=== PATIENT | female | born 1985 | race Caucasian/White ===

== ENCOUNTER → 2019-01-16 | Outpatient (CLI) | payer BC, MEDICAID ==
[~2019-01-16] MED LIST: CATHETER FLUSH 10 ML SYR IV PRN; HOLD METFORMIN - RECEIVED CONTRAST 20 ML VIAL IV SCH; IOHEXOL 350 MG/ML 100 ML (OMNIPAQUE 350) VIAL IV ONE; NS 100 ML (IVPB) BAG IV ONE
--- NOTE | 2019-01-16 10:13 | Diagnostic Imaging Report ---
PROCEDURE: CT head with contrast. TECHNIQUE: Multiple contiguous axial images were obtained through the brain after the administration of intravenous contrast. Auto Exposure Controls were utilized during the CT exam to meet ALARA standards for radiation dose reduction. INDICATION: Left parotid mass COMPARISON: None. FINDINGS: The ventricles and cortical sulci are normal in size and contour. Postcontrast images show no abnormal intracranial enhancement. There is no midline shift or mass-effect. No acute intra-axial hemorrhage is seen. There are no abnormal areas of increased or decreased density to suggest acute hemorrhage or edema. No extra-axial masses or collections are present. The bony calvarium is intact. The visualized paranasal sinuses are unremarkable. The mastoid air cells are clear. Evaluation of the superficial soft tissue structures demonstrates two cystic-appearing lesions on the left. The larger of these lesions is identified peripheral to the left temporal bone and overlying the superficial posterior margins of the left cylinder press operator helper muscle. It measures 2.1 x 4.9 cm in axial dimension by approximately 2.4 cm in CC dimension. Slightly inferior to this is a second partially visualized 2.7 x 2.8 x 2.8 cm cystic-appearing lesion. Centrally, the lesions are uniformly hypodense and hypoenhancing. Hounsfield units are consistent with low-density fluid. There does appear to be some minimal thin capsular enhancement. Note is also made that the more inferior structure does extend into the superior intra-parenchymal portions of the left parotid gland. Please note, its relationship to the parotid gland is better demonstrated on dedicated CT of the neck from same day. IMPRESSION: 1. No acute intracranial abnormality. No CT evidence of mass, acute infarct or intracranial hemorrhage. 2. Two partially visualized cystic-appearing lesions of the left face as described above. First branchial cleft cyst is favored. Extension of the more inferior lesion into the parotid gland also raises possibility of parotid origin such as cystic Warthin's tumors. Other considerations include lymphangioma, dermoid or possibly atypical venous malformation. Please note, these findings are more completely visualized and further discussed on dedicated CT of the neck from same day. Please refer that report. Dictated by: Dictated on workstation # [id number]
--- NOTE | 2019-01-16 12:41 | Diagnostic Imaging Report ---
PROCEDURE: CT neck soft tissue with contrast. TECHNIQUE: Multiple contiguous axial images were obtained through the neck after the administration of contrast. Auto Exposure Controls were utilized during the CT exam to meet ALARA standards for radiation dose reduction. INDICATION: Swelling of left face and neck. FINDINGS: There is a bilobed cystic lesion centered on the left parotid gland. The more superior lobe extends along the temporal calvarium superiorly. This measures approximately 6 cm craniocaudal x 5 cm AP x 2 cm transverse. No definitive mural nodule or other soft tissue component or calcification is appreciated. There is a mucus retention cyst or polyp in the right maxillary sinus. The visualized intracranial structures are unremarkable. The mastoid air cells are clear. The nasopharyngeal, hypopharyngeal, and oropharyngeal tissues are symmetrical without mass effect. The submandibular glands are unremarkable. The thyroid is normal in appearance. The lung apices are clear. Major vascular structures of the neck enhance in a normal fashion. The globes and intraorbital structures are unremarkable. The cervical spine is unremarkable. The prevertebral soft tissues are within normal limits. The epiglottis is unremarkable. IMPRESSION: Bilobed cystic mass in the region of the left parotid gland extending superiorly along the temporal bone. Differential considerations include branchial cleft cyst, lymphangioma, dermoid or possibly atypical venous malformation. This has a generally benign appearance, although neoplasm cannot be entirely excluded. Further characterization with gadolinium-enhanced MRI is recommended. Small mucus retention cyst or polyp in the right maxillary sinus. Otherwise, unremarkable CT neck. Dictated by: Dictated on workstation # [id number]
== END ==
LOC: RAD FS 08:47
PROVIDERS: ATTEND Otolaryngology Otolaryngology/Facial Plastic Surgery
DX: K11.8 Other diseases of salivary glands (principal); R22.1 Localized swelling, mass and lump, neck
CPT/HCPCS: 70460; 70491

== ENCOUNTER 2019-04-30 09:35 | Emergency (ER) | payer BC, MEDICAID ==
[~2019-04-30] VITALS: Ht 170.8 cm; Wt 104.6 kg
--- NOTE | 2019-04-30 10:08 | ED Integumentary General ---
General Chief Complaint: Skin/Wound Problems Stated Complaint: CYST POST SURGERY Source: patient Exam Limitations: no limitations History of Present Illness Date Seen by Provider: Apr 30, 2019 Time Seen by Provider: 10:00 Initial Comments Patient presents to the ER with concern over redness and swelling of the left side of her neck. Recent past medical history significant for left lateral neck surgical dissection of the cyst on 10 of April at [facility]. Patient admits she took cephalexin for 3 days after surgery, but "never finished taking the whole bottle." Saw the ENT doctor on 17 April for removal of the drain at the lower incision and everything was going well. Yesterday had noticed the redness and some slight swelling of the incision, denies any drainage from the incision or significant pain. Denies fever or chills. Allergies and Home Medications Allergies Coded Allergies: meperidine (Verified Allergy, Unknown, Hives, 04/30/19) Home Medications Cephalexin 500 Mg Tablet, 500 MG PO QID Prescribed by: PRISCA OWENS on 04/30/19 1018 Patient Home Medication List Home Medication List Reviewed: Yes Review of Systems Review of Systems Constitutional: see HPI; No chills, No diaphoresis, No dizziness, No fever, No malaise, No weakness EENTM: ear pain (left), other (left neck surgical incision redness); No ear discharge, No blurred vision, No double vision, No eye pain, No vision loss, No hoarseness, No mouth pain, No mouth swelling, No epistaxis, No nose congestion, No nose pain, No throat pain, No throat swelling Respiratory: no symptoms reported Cardiovascular: no symptoms reported Skin: see HPI, change in color Past Ousbsyh-Lhczts-Fxnzxi Hx Past Med/Social Hx: Reviewed Nursing Past Med/Soc Hx Patient Social History Recent Foreign Travel: No Physical Exam Vital Signs Vital Signs - First Documented 04/30/19 09:42 Temp 36.6 Pulse 84 Resp 16 B/P (MAP) 130/70 (90) Pulse Ox 97 O2 Delivery Room Air Capillary Refill : General Appearance: WD/WN, no apparent distress HEENT: normal ENT inspection, TMs normal, pharynx normal; No tonsillar exudate Neck: supple, lymphadenopathy (L) (upper lateral), other (Surgical incision from anterior ear, to post mandibluar angle to lower lateral left neck. Surrounding erythema scattered around incision without dehiscence or wound drainage. ) Progress/Results/Core Measures Results/Orders Vital Signs/I&O 04/30/19 09:42 Temp 36.6 Pulse 84 Resp 16 B/P (MAP) 130/70 (90) Pulse Ox 97 O2 Delivery Room Air Progress Progress Note : Time: 10:37 Progress Note attempted calls to - ENT offices to speak to Dr Koehler or a treasury representative, but unable to get through. Reinforced w pt to call ENT office today to notify Dr Koehler of wound infection Departure Impression Primary Impression: Wound cellulitis after surgery Disposition: HOME, SELF-CARE Condition: Stable Departure-Patient Inst. Referrals: SELF,BRITTANEY NUÑEZ (PCP) Primary Care Physician MARCOS TALAVERA APRN (Family) Primary Care Physician Patient Instructions: Cellulitis (Skin Infection), Adult (DC), How to Prevent Surgical Site Infections Scripts Cephalexin (Cephalexin) 500 Mg Tablet 500 MG PO QID for 7 Days, #28 TAB Prov: PRISCA OWENS DO 04/30/19 PRISCA OWENS DO Apr 30, 2019 10:08 POS
[2019-04-30] MEDS ORDERED: CEPH500T PO (10:18)
[2019-04-30 10:36] VITALS: BP 115/88
== END 2019-04-30 10:36 | disposition home or self-care (01) ==
LOC: EDUNIT# 09:35 → ER FS 09:36
DX: T81.49XA Infection following a procedure, other surgical site, initial encounter (principal); Z88.5 Allergy status to narcotic agent
CPT/HCPCS: 99282

== ENCOUNTER 2019-07-13 14:03 | Emergency (ER) | payer BC, MEDICAID ==
[~2019-07-13] VITALS: Ht 170.1 cm; Wt 109.1 kg
[~2019-07-13 14:03] MED LIST changes: -CATHETER FLUSH 10 ML SYR IV PRN; +CEPH500T PO; -HOLD METFORMIN - RECEIVED CONTRAST 20 ML VIAL IV SCH; -IOHEXOL 350 MG/ML 100 ML (OMNIPAQUE 350) VIAL IV ONE; -NS 100 ML (IVPB) BAG IV ONE
--- NOTE | 2019-07-13 14:28 | ED Back Pain ---
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 She is complaining of pain over the lumbar region. Pain is sharp in nature and radiates into her thighs. Allergies and Home Medications Allergies Coded Allergies: meperidine (Verified Allergy, Unknown, Hives, 04/30/19) Patient Home Medication List Home Medication List Reviewed: Yes Review of Systems Constitutional: no symptoms reported EENTM: no symptoms reported Respiratory: no symptoms reported Cardiovascular: no symptoms reported Gastrointestinal: no symptoms reported Genitourinary: no symptoms reported Musculoskeletal: see HPI, back pain Skin: no symptoms reported Psychiatric/Neurological: No Symptoms Reported Past Bmawdiw-Tevepl-Ijifqy Hx Past Med/Social Hx: Reviewed Nursing Past Med/Soc Hx Patient Social History Drug of Choice: Marijuana Type Used: Cigarettes 2nd Hand Smoke Exposure: No Recent Hopitalizations: No Seasonal Allergies Seasonal Allergies: No Past Medical History Surgeries: Yes (Parotid Cyst removal from salivary gland) Cystectomy Respiratory: No Cardiac: No Neurological: No Genitourinary: No Gastrointestinal: No Musculoskeletal: No Endocrine: No HEENT: No Cancer: No Psychosocial: No Integumentary: No Blood Disorders: No Physical Exam Vital Signs Vital Signs - First Documented 07/13/19 14:11 Temp 36.2 Pulse 68 Resp 20 B/P (MAP) 139/88 (105) Pulse Ox 97 O2 Delivery Room Air Capillary Refill : Height, Weight, BMI Height: '" Weight: lbs. oz. kg; 35.00 BMI Method: General Appearance: No Apparent Distress, Mild Distress HEENT: Normal ENT Inspection Neck: Normal Inspection Cardiovascular: Regular Rate, Rhythm Respiratory: Lungs Clear, No Respiratory Distress Gastrointestinal: Normal Bowel Sounds, Soft Back: Normal Inspection, Muscle Spasm Extremity: Normal Inspection Neurologic/Psychiatric: No Motor/Sensory Deficits, Normal Mood/Affect Skin: Normal Color, Warm/Dry Progress/Results/Core Measures Results/Orders My Orders Orders - SUMI MURILLO MD Lumbar Spine 2 Or 3 View (07/13/19 14:19) Fentanyl Injection (Sublimaze Injection (07/13/19 14:30) Medications Given in ED Current Medications Medications Dose Ordered Sig/Hannah Route Start Time Stop Time Status Last Admin Dose Admin Fentanyl Citrate 50 mcg ONCE ONCE IM 07/13/19 14:30 07/13/19 14:31 DC 07/13/19 14:26 50 MCG Vital Signs/I&O 07/13/19 14:11 Temp 36.2 Pulse 68 Resp 20 B/P (MAP) 139/88 (105) Pulse Ox 97 O2 Delivery Room Air Progress Progress Note : Time: 14:51 Progress Note Patient was much improved with 50 g of fentanyl. X-rays lumbosacral spine were unremarkable. I discussed findings with the patient. I discharged patient with Vicodin and Flexeril. I asked that she follow-up with her caregiver tomorrow. I asked that she return if she had any further problems or questions. Departure Impression Primary Impression: Lumbar sprain Qualified Codes: S33.5XXA - Sprain of ligaments of lumbar spine, initial encounter Disposition: 01 HOME, SELF-CARE Condition: Improved Departure-Patient Inst. Decision time for Depature: 14:52 Referrals: [facility]ON[facility] (PCP) Primary Care Physician MARCOS TALAVERA APRN (Family) Primary Care Physician Patient Instructions: Lumbar Muscle Strain (DC) Add. Discharge Instructions: Vicodin Flexeril as prescribed. Close follow-up with [facility] tomorrow. Return if any problems or questions. All discharge instructions reviewed with patient and/or family. Voiced understanding. Scripts Cyclobenzaprine HCl (Cyclobenzaprine HCl) 10 Mg Tablet 10 MG PO TID PRN for SPASMS, #20 TAB Prov: SUMI MURILLO MD 07/13/19 Hydrocodone/Acetaminophen (Hydrocodon-Acetaminophen 5-300) 1 Each Tablet 1-2 EACH PO Q6H PRN for PAIN-MODERATE for 7 Days, #20 TAB Prov: SUMI MURILLO MD 07/13/19 SUMI MURILLO MD Jul 13, 2019 14:28
[2019-07-13] MEDS ORDERED: fentaNYL INJECTION 100 MCG/2 ML AMP IM ONE (14:30)
--- NOTE | 2019-07-13 14:44 | Diagnostic Imaging Report ---
Indication: Worsening low back pain after injuring yesterday. Comparison: None. Discussion: Three views of the lumbosacral spine were obtained. No fracture or subluxation. Alignment is anatomic. The intervertebral disc spaces are well-maintained. Soft tissues are unremarkable. Impression: 1. Negative lumbar spine. Dictated by: Dictated on workstation # [id number]
[2019-07-13] MEDS ORDERED: CYCL10TA9 PO (14:55)
[2019-07-13] MEDS ORDERED: HYDR-3062 PO (14:55)
[2019-07-13 14:58] VITALS: BP 139/88
== END 2019-07-13 14:58 | disposition home or self-care (01) ==
LOC: EDUNIT# 14:03 → ER FS 14:04
DX: S33.5XXA Sprain of ligaments of lumbar spine, initial encounter (principal); Z88.5 Allergy status to narcotic agent; Z90.6 Acquired absence of other parts of urinary tract; X50.0XXA Overexertion from strenuous movement or load, initial encounter
CPT/HCPCS: 72100; 96372

== ENCOUNTER 2020-07-05 15:20 | Emergency (ER) | payer MEDICAID ==
[~2020-07-05 15:20] MED LIST changes: +ACHD5005 PO; +CYCL10TA9 PO
[2020-07-05 15:48] LABS: HEMATOCRIT 34 % (35-52); HEMOGLOBIN 11.7 G/DL (11.5-16.0); MEAN CORPUSCULAR HEMOGLOBIN 30 PG (25-34); MEAN CORPUSCULAR HGB CONC 35 G/DL (32-36); MEAN CORPUSCULAR VOLUME 88 FL (80-99); WHITE BLOOD COUNT 11.1 10^3/uL (4.3-11.0)
[2020-07-05 15:49] LABS: BASOPHILS % (AUTO) 0 % (0-10); EOSINOPHILS # (AUTO) 0.1 10^3/uL (0.0-0.3); EOSINOPHILS % (AUTO) 1 % (0-10); LYMPHOCYTES # (AUTO) 6.6 X 10^3 (1.0-4.0); LYMPHOCYTES % (AUTO) 60 % (12-44); MEAN PLATELET VOLUME 9.9 FL (7.4-10.4); MONOCYTES % (AUTO) 9 % (0-12); NEUTROPHILS # (AUTO) 3.4 X 10^3 (1.8-7.8); NEUTROPHILS % (AUTO) 31 % (42-75); PLATELET COUNT 200 10^3/uL (130-400)
[2020-07-05] MEDS: NS IV 1000 ML 1,000 ML IV SCH ×2 (15:56→16:28)
--- NOTE | 2020-07-05 16:01 | Diagnostic Imaging Report ---
EXAMINATION: Portable erect AP chest at 3:36 PM INDICATION: Cough and congestion There are no prior chest examinations available for comparison. By history, the patient is approximately 33 weeks . She was shielded prior to this exam. The heart size is within normal limits. The lungs are clear. There is no evidence for failure, pneumonia or for pleural effusion. The mediastinum is not widened. There is a long-standing incompletely healed fracture of the distal right clavicle. The osseous structures are otherwise intact. IMPRESSION: There is no evidence for active disease. Dictated by: Dictated on workstation # [id number]
[2020-07-05 16:05] LABS: ALANINE AMINOTRANSFERASE 14 U/L (0-55); ALKALINE PHOSPHATASE 117 U/L (40-136); BILIRUBIN,TOTAL 0.2 MG/DL (0.1-1.0); BUN/CREATININE RATIO 12; CALCIUM 8.7 MG/DL (8.5-10.1); CARBON DIOXIDE 23 MMOL/L (21-32); CHLORIDE 100 MMOL/L (98-107); CREATININE SERUM 0.52 MG/DL (0.60-1.30); GFR ESTIMATED > 60; GLUCOSE 143 MG/DL (70-105); POTASSIUM 3.8 MMOL/L (3.6-5.0); SODIUM 135 MMOL/L (135-145); TOTAL PROTEIN 6.4 GM/DL (6.4-8.2)
[2020-07-05 16:23] LABS: BACTERIA,URINE MODERATE /HPF; BILIRUBIN,URINE NEGATIVE (NEGATIVE); CLARITY,URINE CLEAR; COLOR,URINE YELLOW; GLUCOSE, URINE (UA) NEGATIVE (NEGATIVE); KETONES,URINE 1+ (NEGATIVE); LEUKOCYTE ESTERASE ,URINE 1+ (NEGATIVE); NITRITE,URINE NEGATIVE (NEGATIVE); PH,URINE 7.5 (5-9); PROTEIN,URINE NEGATIVE (NEGATIVE); SQUAMOUS EPITHELIAL CELL,UR >50 /HPF
[2020-07-05 16:30] LABS: AMPHETAMINE SCREEN, URINE NEGATIVE (NEGATIVE); BARBITURATE SCREEN URINE NEGATIVE (NEGATIVE); BENZODIAZEPINES SCREEN URINE NEGATIVE (NEGATIVE); CANNABINOID SCREEN, URINE NEGATIVE (NEGATIVE); COCAINE SCREEN URINE NEGATIVE (NEGATIVE); METHADONE STAT NEGATIVE (NEGATIVE); METHAMPHETAMINE SCREEN URINE S NEGATIVE (NEGATIVE); OPIATE SCREEN URINE NEGATIVE (NEGATIVE); TRICYCLIC ANTIDEPRESSANTS SCRE NEGATIVE (NEGATIVE)
[2020-07-05 16:31] LABS: OXYCODONE STAT NEGATIVE (NEGATIVE); PROPOXYPHENE STAT NEGATIVE (NEGATIVE)
[2020-07-05] MEDS ORDERED: BARIUM for suspension 96% w/w (Vanilla Silq Medium Density) PO ONE ×2 (17:15→17:30)
[2020-07-05] MEDS ORDERED: HOLD METFORMIN - RECEIVED CONTRAST 20 ML VIAL IV SCH (17:15)
[2020-07-05] MEDS ORDERED: CATHETER FLUSH 10 ML SYR IV PRN (17:15)
[2020-07-05] MEDS ORDERED: NS 100 ML (IVPB) BAG IV ONE (17:15)
[2020-07-05] MEDS ORDERED: IOHEXOL 350 MG/ML 100 ML (OMNIPAQUE 350) VIAL IV ONE (17:15)
--- NOTE | 2020-07-05 18:14 | Diagnostic Imaging Report ---
EXAMINATION: CTA of the chest from 07/05/2020. TECHNIQUE: Multiple contiguous axial images were obtained through the chest after uneventful bolus administration of intravenous contrast. 3D reconstructed CTA MIP acquisitions were also performed. Auto Exposure Controls were utilized during the CT exam to meet ALARA standards for radiation dose reduction. INDICATION: Cough and congestion, chest pain, and elevated D-dimer. Patient is 33 weeks . FINDINGS: The bolus was missed per the technologist, auto-trigger triggered examination prematurely. This markedly limits evaluation for pulmonary embolus. Within the region of the right main pulmonary artery on images 58 through 61, there is a low-density area noted. It is unclear if this lies within the artery or is caused by incomplete opacification and adjacent volume averaging with the right hilum. Given pulmonary embolus cannot be excluded, short-term follow-up repeat imaging if symptoms persist may be warranted. The thoracic aorta is unremarkable. No pericardial or pleural effusions seen. The visualized lungs demonstrate linear scarring or atelectasis in the lingula and anterior aspect of the left lower lobe. There is no acute osseous abnormality. IMPRESSION: 1. Markedly limited evaluation for pulmonary embolus. Please see above discussion. If continued clinical concern, repeat imaging may be necessary. Other findings as above. Dictated by: Dictated on workstation # [id number]
--- NOTE | 2020-07-05 19:19 | ED General ---
General Chief Complaint: Chest Pain Stated Complaint: CHEST PAIN Nursing Triage Note: Patient presents to the ED with c/o of Chest pain at 33 weeks gestation. She states that she has had intermittent chest pain since Sunday. She denies any complications with her pregancy. She reports she had a appointment Sunday and was sent to get swabbed for COVID due to cough and chest pain; reported result was negative. She was then seen at [facility] walk-in Sunday due to increased heart rate and chest pains. She states she was told her heart rate was due to anxiety and her lungs were clear to ascultation. Today she reports her symptoms began again so she presented to ED for further evaluation. Nursing Sepsis Screen: No Definite Risk History of Present Illness Date Seen by Provider: Jul 05, 2020 Time Seen by Provider: 17:00 Initial Comments Patient is a G4, P3, approximately 33 week gestation female who presents with persistent chest pain. Patient reports pleuritic chest burning, shortness of breath with tachycardia. Patient states symptoms ongoing for the past he can have further gradually worsened. She reports being tachycardic with palpitations with light exertion with heart rates in the 130s. Patient was evaluated and tested negative for coded by her R[employer]DER last week. She is instructed that should her symptoms worsen she should come to the emergency department today. Patient denies fever chills, nausea vomiting or sweats 3. Reports occasional cough. No leg pain or swelling. No history of DVT or PE. Reports sporadic light contractions consistent with episodes of [place] but denies any in the emergency department today. Denies complications with current . Patient's OB Timing/Duration: 6-7 Days Severity: Moderate Modifying Factors: improves with Other Associated Systoms: Chest Pain Allergies and Home Medications Allergies Coded Allergies: meperidine (Verified Allergy, Unknown, Hives, 04/30/19) Home Medications Cyclobenzaprine HCl 10 Mg Tablet, 10 MG PO TID PRN for SPASMS Prescribed by: SUMI MURILLO MD on 07/13/19 6902 Hydrocodone Bit/Acetaminophen 1 Each Tablet, 1-2 EACH PO Q6H PRN for PAIN- MODERATE Prescribed by: SUMI MURILLO MD on 07/13/19 2341 Patient Home Medication List Home Medication List Reviewed: Yes Review of Systems Review of Systems Constitutional: see HPI EENTM: see HPI Respiratory: see HPI Cardiovascular: see HPI Gastrointestinal: see HPI Genitourinary: see HPI : Yes Skin: see HPI Psychiatric/Neurological: See HPI Hematologic/Lymphatic: See HPI All Other Systems Reviewed Negative Unless Noted: Yes Past Vtmpvyu-Xbhsrm-Wijzci Hx Past Med/Social Hx: Reviewed Nursing Past Med/Soc Hx Patient Social History Alcohol Use: Denies Use Drug of Choice: Marijuana Smoking Status: Current Everyday Smoker Type Used: Cigarettes 2nd Hand Smoke Exposure: No Recent Infectious Disease Expo: No Recent Hopitalizations: No Seasonal Allergies Seasonal Allergies: No Past Medical History Surgeries: Yes (Parotid Cyst removal from salivary gland) Cystectomy Respiratory: No Cardiac: No Neurological: No Genitourinary: No Gastrointestinal: No Musculoskeletal: No Endocrine: No HEENT: No Cancer: No Psychosocial: No Integumentary: No Blood Disorders: No Physical Exam Vital Signs Vital Signs - First Documented 07/05/20 15:25 Temp 37.1 Pulse 122 Resp 20 B/P (MAP) 95/63 (74) Pulse Ox 97 O2 Delivery Room Air Capillary Refill : Less Than 3 Seconds Height, Weight, BMI Height: '" Weight: lbs. oz. kg; 37.00 BMI Method: General Appearance: No Apparent Distress Eyes: Bilateral Eye Normal Inspection, Bilateral Eye PERRL, Bilateral Eye EOMI HEENT: PERRL/EOMI, TMs Normal, Pharynx Normal Neck: Full Range of Motion, Non Tender, Supple Respiratory: Chest Non Tender, Lungs Clear Cardiovascular: Tachycardia Gastrointestinal: Non Tender (gravid abdomen low diaphragm), Soft, Other Back: Normal Inspection Extremity: Normal Capillary Refill, Normal Inspection, Non Tender Neurologic/Psychiatric: Alert Reflexes: 4+ Bicep (R), 4+ Bicep (L) Skin: Normal Color Lymphatic: No Adenopathy Focused Exam Sepsis Stage: Ruled Out Progress/Results/Core Measures Suspected Sepsis Recent Fever Within 48 Hours: No Infection Criteria Present: Suspected New Infection New/Unexplained Altered Menta: No Sepsis Screen: No Definite Risk SIRS Temperature: Pulse: 122 Respiratory Rate: 20 Laboratory Tests 07/05/20 15:28: White Blood Count 11.1H Blood Pressure 95 /63 Mean: 74 Laboratory Tests 07/05/20 15:28: Creatinine 0.52L, Platelet Count 200, Total Bilirubin 0.2 Results/Orders Lab Results Laboratory Tests Test 07/05/20 15:28 07/05/20 16:11 Range/Units White Blood Count 11.1 H 4.3-11.0 10^3/uL Red Blood Count 3.85 L 4.35-5.85 10^6/uL Hemoglobin 11.7 11.5-16.0 G/DL Hematocrit 34 L 35-52 % Mean Corpuscular Volume 88 80-99 FL Mean Corpuscular Hemoglobin 30 25-34 PG Mean Corpuscular Hemoglobin Concent 35 32-36 G/DL Red Cell Distribution Width 12.7 10.0-14.5 % Platelet Count 200 130-400 10^3/uL Mean Platelet Volume 9.9 7.4-10.4 FL Neutrophils (%) (Auto) 31 L 42-75 % Lymphocytes (%) (Auto) 60 H 12-44 % Monocytes (%) (Auto) 9 0-12 % Eosinophils (%) (Auto) 1 0-10 % Basophils (%) (Auto) 0 0-10 % Neutrophils # (Auto) 3.4 1.8-7.8 X 10^3 Lymphocytes # (Auto) 6.6 H 1.0-4.0 X 10^3 Monocytes # (Auto) 1.0 0.0-1.0 X 10^3 Eosinophils # (Auto) 0.1 0.0-0.3 10^3/uL Basophils # (Auto) 0.0 0.0-0.1 10^3/uL D-Dimer 2.53 H 0.00-0.49 UG/ML Sodium Level 135 135-145 MMOL/L Potassium Level 3.8 3.6-5.0 MMOL/L Chloride Level 100 98-107 MMOL/L Carbon Dioxide Level 23 21-32 MMOL/L Anion Gap 12 5-14 MMOL/L Blood Urea Nitrogen 6 L 7-18 MG/DL Creatinine 0.52 L 0.60-1.30 MG/DL Estimat Glomerular Filtration Rate > 60 BUN/Creatinine Ratio 12 Glucose Level 143 H 70-105 MG/DL Calcium Level 8.7 8.5-10.1 MG/DL Corrected Calcium 9.5 8.5-10.1 MG/DL Total Bilirubin 0.2 0.1-1.0 MG/DL Aspartate Amino Transf (AST/SGOT) 28 5-34 U/L Alanine Aminotransferase (ALT/SGPT) 14 0-55 U/L Alkaline Phosphatase 117 40-136 U/L Troponin I < 0.30 <0.30 NG/ML Total Protein 6.4 6.4-8.2 GM/DL Albumin 3.0 L 3.2-4.5 GM/DL Urine Color YELLOW Urine Clarity CLEAR Urine pH 7.5 5-9 Urine Specific [place] 1.020 1.016-1.022 Urine Protein NEGATIVE NEGATIVE Urine Glucose (UA) NEGATIVE NEGATIVE Urine Ketones 1+ H NEGATIVE Urine Nitrite NEGATIVE NEGATIVE Urine Bilirubin NEGATIVE NEGATIVE Urine Urobilinogen 0.2 < = 1.0 MG/DL Urine Leukocyte Esterase 1+ H NEGATIVE Urine RBC (Auto) NEGATIVE NEGATIVE Urine RBC NONE /HPF Urine WBC 2-5 /HPF Urine Squamous Epithelial Cells >50 H /HPF Urine Crystals NONE /LPF Urine Bacteria MODERATE H /HPF Urine Casts NONE /LPF Urine Mucus NEGATIVE /LPF Urine Culture Indicated NO Urine Opiates Screen NEGATIVE NEGATIVE Urine Oxycodone Screen NEGATIVE NEGATIVE Urine Methadone Screen NEGATIVE NEGATIVE Urine Propoxyphene Screen NEGATIVE NEGATIVE Urine Barbiturates Screen NEGATIVE NEGATIVE Ur Tricyclic Antidepressants Screen NEGATIVE NEGATIVE Urine Phencyclidine Screen NEGATIVE NEGATIVE Urine Amphetamines Screen NEGATIVE NEGATIVE Urine Methamphetamines Screen NEGATIVE NEGATIVE Urine Benzodiazepines Screen NEGATIVE NEGATIVE Urine Cocaine Screen NEGATIVE NEGATIVE Urine Cannabinoids Screen NEGATIVE NEGATIVE My Orders Orders - MARY MICHELE DO Cbc With Automated Diff (07/05/20 15:29) Comprehensive Metabolic Panel (07/05/20 15:29) Chest 1 View Ap/Pa Only (07/05/20 15:29) Troponin I Fs (07/05/20 15:29) Fibrin Degradation Products (07/05/20 15:29) Ns Iv 1000 Ml (Sodium Chloride 0.9%) (07/05/20 16:00) Ua Culture If Indicated (07/05/20 15:46) Drug Screen Stat (Urine) (07/05/20 16:15) Ct Angio Chest W (07/05/20 16:35) Barium For Suspension 96% W/W (Vanilla S (07/05/20 17:15) Iohexol Injection (Omnipaque 350 Mg/Ml 1 (07/05/20 17:15) Received Contrast (Hold Metformin- Contr (07/05/20 17:15) Sodium Chloride Flush (Catheter Flush Sy (07/05/20 17:15) Ns (Ivpb) (Sodium Chloride 0.9% Ivpb Bag (07/05/20 17:15) Barium For Suspension 96% W/W (Vanilla S (07/05/20 17:30) Medications Given in ED Current Medications Medications Dose Ordered Sig/Hannah Route Start Time Stop Time Status Last Admin Dose Admin Barium Sulfate 176 gm ONCE ONCE PO 07/05/20 17:15 07/05/20 17:16 DC 07/05/20 17:03 176 GM Barium Sulfate 176 gm ONCE ONCE PO 07/05/20 17:30 07/05/20 17:31 DC 07/05/20 17:22 176 GM Iohexol 100 ml ONCE ONCE IV 07/05/20 17:15 07/05/20 17:16 DC 07/05/20 17:50 100 ML Sodium Chloride 10 ml NEEDED PRN IV 07/05/20 17:15 07/05/20 17:50 10 ML Sodium Chloride 100 ml ONCE ONCE IV 07/05/20 17:15 07/05/20 17:16 DC 07/05/20 17:50 100 ML Vital Signs/I&O 07/05/20 07/05/20 15:25 15:25 Temp 37.1 Pulse 122 Resp 20 B/P (MAP) 95/63 (74) Pulse Ox 97 O2 Delivery Room Air Room Air Capillary Refill : Less Than 3 Seconds Blood Pressure Mean: 74 Departure Communication (Admissions) Chest x-ray: Nondiagnostic CTA chest: Nondiagnostic Patient with cough, pleuritic chest pain with persistent tachycardia with negative COVID study. Patient is not hypoxic and is not in respiratory distress. Imaging study is nondiagnostic. Unfortunately, the contrast injection was not phased crackly with a CT imaging and no quality of pacification of the arteries was obtained. IV fluids given. Given the patient remains symptomatic with tachycardia will transfer to patient's facility of choice which is a [facility]. Will discuss given Lovenox prior to transfer given patient's risk for PE and lack of diagnostic certainty with the on-call OB prior to transfer. Patient accepted by Dr. Renae had OPR. Impression Primary Impression: Chest pain Additional Impressions: Palpitations Acute bronchitis Third trimester Disposition: SHT-TRM HOSP Condition: Stable Transfer Method of Transfer: EMS Departure-Patient Inst. Referrals: [facility] (PCP) Primary Care Physician MARCOS TALAVERA APRN (Family) Primary Care Physician MARY MICHELE DO Jul 05, 2020 19:19
[2020-07-05 20:49] VITALS: BP 127/74
== END 2020-07-05 20:49 | disposition short-term general hospital (02) ==
LOC: EDUNIT# 15:20 → ER FS 15:22
DX: O26.893 Other specified pregnancy related conditions, third trimester (principal); R07.9 Chest pain, unspecified; R00.2 Palpitations; J20.9 Acute bronchitis, unspecified; F17.210 Nicotine dependence, cigarettes, uncomplicated; Z3A.33 33 weeks gestation of pregnancy; Z88.5 Allergy status to narcotic agent
CPT/HCPCS: 36415; 71045; 71275; 80053; 80306; 81000; 84484; 85025; 85379; 93005

== ENCOUNTER 2021-04-09 12:30 | Emergency (ER) | payer MEDICAID ==
[~2021-04-09] VITALS: Ht 172.7 cm; Wt 104.3 kg
[2021-04-09 12:45] VITALS: BP 125/77
[2021-04-09] MEDS ORDERED: NS IV 1000 ML 1,000 ML IV STA ×2 (12:59→13:54)
[2021-04-09] MEDS ORDERED: KETOROLAC 30 MG/ML VIAL IVP STA (12:59)
[2021-04-09 13:12] LABS: BILIRUBIN,URINE NEGATIVE (NEGATIVE); CLARITY,URINE CLOUDY; COLOR,URINE YELLOW; GLUCOSE, URINE (UA) NEGATIVE (NEGATIVE); KETONES,URINE NEGATIVE (NEGATIVE); LEUKOCYTE ESTERASE ,URINE 2+ (NEGATIVE); NITRITE,URINE POSITIVE (NEGATIVE); PROTEIN,URINE 1+ (NEGATIVE); WBC,URINE TNTC /HPF
[2021-04-09] MEDS ORDERED: ONDANSETRON 4 MG/2 ML (SDV) Z0FRAN IVP STA (13:15)
[2021-04-09] MEDS ORDERED: ORPHENADRINE 60 MG/2 ML (NORFLEX) AMP (ED ONLY) IVP STA (13:15)
--- NOTE | 2021-04-09 13:22 | ED General ---
General Chief Complaint: Back Problems Stated Complaint: BACK PAIN BODYACHES/FEVER/CHILLS HEADACHE Nursing Triage Note: Patient states she began having symptoms of a UTI 2 days ago, states she now has generalized body aches, a headache, back pain, and states that her "lungs hurt." Source of Information: Patient History of Present Illness Date Seen by Provider: Apr 09, 2021 Time Seen by Provider: 12:38 Initial Comments 35-year-old female presenting with complaints of generalized body aches and pain. She states that she originally had symptoms of a UTI and thought she could just treated with drinking cranberry juice lots of water and Azo. However since last Sunday she has had generalized body pain and pain up around her kidneys. She has had some occasional cough as well. She has burning with urination and dark-colored urine. She has had some constipation and a lot of abdominal gas and bloating. She states that she is an IV drug abuser and she had tried using some additional drugs to help with her pain but it seemed to make things worse. She stated that she thought somebody gave her something when she was shooting up. She has been sleeping a lot in the last few days. She was planning on coming to the ED last night but fell asleep. 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 pt does not have a regular provider and does not routinely go to the clinic. She has not had any antibiotics for her UTI symptoms. She also has a headache since yesterday. She feels like she is having spasms and cramping all over her body. Severity: Severe Modifying Factors: worse with Movement Associated Systoms: No Chest Pain; Cough; No Diaphoresis; Fever/Chills (subjective), Headaches, Malaise, Nausea/Vomiting (nausea but no vomiting); No Seizure, No Shortness of Air; Weakness Allergies and Home Medications Allergies Coded Allergies: meperidine (Verified Allergy, Unknown, Hives, 04/30/19) Patient Home Medication List Home Medication List Reviewed: Yes Cyclobenzaprine HCl (Cyclobenzaprine HCl) 10 Mg Tablet, 10 MG PO TID PRN for SPASMS Prescribed by: SUMI MURILLO MD on 07/13/19 5718 Hydrocodone Bit/Acetaminophen (HYDROcodone/APAP 5 MG/325 MG TAB) 1 Each Tablet, 1-2 EACH PO Q6H PRN for PAIN-MODERATE Prescribed by: SUMI MURILLO MD on 07/13/19 4739 Review of Systems Review of Systems Constitutional: see HPI EENTM: no symptoms reported Respiratory: see HPI Cardiovascular: No chest pain; palpitations Gastrointestinal: see HPI Genitourinary: see HPI, decreased output, dysuria, frequency, hesitancy Musculoskeletal: see HPI, muscle cramps (generalized body aches with cramping and pain all over) Skin: No rash Psychiatric/Neurological: Headache Past Hmbryea-Zhewja-Tfocdc Hx Patient Social History Substance use?: Yes (IV Drug Abuse) Substance type: Methamphetamine, Marijuana Pt feels they are or have been: No Seasonal Allergies Seasonal Allergies: No Past Medical History Surgery/Hospitalization HX: IV Drug Abuse Surgeries: Yes (Parotid Cyst removal from salivary gland) Cystectomy Respiratory: No Cardiac: No Neurological: No Genitourinary: No Gastrointestinal: No Musculoskeletal: No Endocrine: No HEENT: No Cancer: No Psychosocial: No Integumentary: No Blood Disorders: No Physical Exam Vital Signs Vital Signs - First Documented 04/09/21 12:45 Temp 36.7 Pulse 107 Resp 18 B/P (MAP) 125/77 (93) Pulse Ox 100 O2 Delivery Room Air Capillary Refill : Less Than 3 Seconds Height, Weight, BMI Height: '" Weight: lbs. oz. kg; 34.00 BMI Method: General Appearance: Anxious, Moderate Distress, Obese Neck: Full Range of Motion, Normal Inspection, Non Tender, Supple Respiratory: Chest Non Tender, Lungs Clear, Normal Breath Sounds, No Accessory Muscle Use, No Respiratory Distress Cardiovascular: Normal Peripheral Pulses, Tachycardia Gastrointestinal: No Pulsatile Mass, Soft, Abnormal Bowel Sounds (hypoactive bowel sounds); No Guarding, No Rebound; Tenderness (diffuse tenderness with palpation) Rectal: Deferred Back: CVA Tenderness (L), CVA Tenderness (R) Extremity: Normal Capillary Refill, No Pedal Edema Neurologic/Psychiatric: Alert, Oriented x3, Other (anxious and is rocking on the bed and repeatedly moaning) Skin: Warm/Dry Focused Exam Lactate Level 04/09/21 13:20: Lactic Acid Level 2.87*H Lactic Acid Level Laboratory Tests Test 04/09/21 13:20 Lactic Acid Level 2.87 MMOL/L (0.50-2.00) *H Progress/Results/Core Measures Suspected Sepsis SIRS Temperature: Pulse: 107 Respiratory Rate: 18 Laboratory Tests 04/09/21 13:20: White Blood Count 16.0H Blood Pressure 125 /77 Mean: 93 04/09/21 13:20: Lactic Acid Level 2.87*H Laboratory Tests 04/09/21 13:20: Creatinine 0.70, Platelet Count 264, Total Bilirubin 0.4 Results/Orders Lab Results Laboratory Tests Test 04/09/21 13:00 04/09/21 13:20 Range/Units Urine Color YELLOW Urine Clarity CLOUDY Urine pH 6.0 5-9 Urine Specific [facility] 1.020 1.016-1.022 Urine Protein 1+ H NEGATIVE Urine Glucose (UA) NEGATIVE NEGATIVE Urine Ketones NEGATIVE NEGATIVE Urine Nitrite POSITIVE H NEGATIVE Urine Bilirubin NEGATIVE NEGATIVE Urine Urobilinogen 0.2 < = 1.0 MG/DL Urine Leukocyte Esterase 2+ H NEGATIVE Urine RBC (Auto) 1+ H NEGATIVE Urine RBC /HPF Urine WBC TNTC H /HPF Urine Crystals NONE /LPF Urine Bacteria /HPF Urine Casts NONE /LPF Urine Mucus NEGATIVE /LPF Urine Culture Indicated YES Urine Opiates Screen NEGATIVE NEGATIVE Urine Oxycodone Screen NEGATIVE NEGATIVE Urine Methadone Screen NEGATIVE NEGATIVE Urine Propoxyphene Screen NEGATIVE NEGATIVE Urine Barbiturates Screen NEGATIVE NEGATIVE Ur Tricyclic Antidepressants Screen NEGATIVE NEGATIVE Urine Phencyclidine Screen NEGATIVE NEGATIVE Urine Amphetamines Screen POSITIVE H NEGATIVE Urine Methamphetamines Screen POSITIVE H NEGATIVE Urine Benzodiazepines Screen NEGATIVE NEGATIVE Urine Cocaine Screen NEGATIVE NEGATIVE Urine Cannabinoids Screen NEGATIVE NEGATIVE White Blood Count 16.0 H 4.3-11.0 10^3/uL Red Blood Count 4.65 3.80-5.11 10^6/uL Hemoglobin 14.1 11.5-16.0 g/dL Hematocrit 42 35-52 % Mean Corpuscular Volume 90 80-99 fL Mean Corpuscular Hemoglobin 30 25-34 pg Mean Corpuscular Hemoglobin Concent 34 32-36 g/dL Red Cell Distribution Width 12.4 10.0-14.5 % Platelet Count 264 130-400 10^3/uL Mean Platelet Volume 10.4 9.0-12.2 fL Immature Granulocyte % (Auto) 0 % Neutrophils (%) (Auto) 78 H 42-75 % Lymphocytes (%) (Auto) 15 12-44 % Monocytes (%) (Auto) 5 0-12 % Eosinophils (%) (Auto) 1 0-10 % Basophils (%) (Auto) 0 0-10 % Neutrophils # (Auto) 12.4 H 1.8-7.8 X 10^3 Lymphocytes # (Auto) 2.5 1.0-4.0 X 10^3 Monocytes # (Auto) 0.8 0.0-1.0 X 10^3 Eosinophils # (Auto) 0.1 0.0-0.3 10^3/uL Basophils # (Auto) 0.0 0.0-0.1 10^3/uL Immature Granulocyte # (Auto) 0.1 0.0-0.1 10^3/uL Neutrophils % (Manual) 87 % Lymphocytes % (Manual) 9 % Monocytes % (Manual) 4 % Toxic Granulation 4+ Polychromasia SLIGHT Sodium Level 136 135-145 MMOL/L Potassium Level 3.3 L 3.6-5.0 MMOL/L Chloride Level 96 L 98-107 MMOL/L Carbon Dioxide Level 27 21-32 MMOL/L Anion Gap 13 5-14 MMOL/L Blood Urea Nitrogen 11 7-18 MG/DL Creatinine 0.70 0.60-1.30 MG/DL Estimat Glomerular Filtration Rate 96 BUN/Creatinine Ratio 16 Glucose Level 85 70-105 MG/DL Lactic Acid Level 2.87 *H 0.50-2.00 MMOL/L Calcium Level 9.6 8.5-10.1 MG/DL Corrected Calcium 9.3 8.5-10.1 MG/DL Total Bilirubin 0.4 0.1-1.0 MG/DL Aspartate Amino Transf (AST/SGOT) 29 5-34 U/L Alanine Aminotransferase (ALT/SGPT) 14 0-55 U/L Alkaline Phosphatase 87 40-136 U/L C-Reactive Protein 24.29 H <0.50 MG/DL Total Protein 8.4 H 6.4-8.2 GM/DL Albumin 4.4 3.2-4.5 GM/DL My Orders Orders - LILLIE RESTREPO MD Cbc With Automated Diff (04/09/21 12:59) Comprehensive Metabolic Panel (04/09/21 12:59) Blood Culture (04/09/21 12:59) Ua Culture If Indicated (04/09/21 12:59) Ed Iv/Invasive Line Start (04/09/21 12:59) Crp Fs (10/16/21 12:59) Lactic Acid Analyzer (04/09/21 12:59) Urine Bedside (04/09/21 12:59) Ns Iv 1000 Ml (Sodium Chloride 0.9%) (04/09/21 12:59) Ketorolac Injection (Toradol Injection) (04/09/21 12:59) Urine Culture (04/09/21 13:00) Drug Screen Stat (Urine) (04/09/21 13:15) Ct Abdomen/Pelvis W (04/09/21 13:15) Ondansetron Injection (Zofran Injectio (04/09/21 13:15) Orphenadrine Inj (Ed Only) (Norflex Inje (04/09/21 13:15) Manual Differential (04/09/21 13:20) Iohexol Injection (Omnipaque 350 Mg/Ml 1 (04/09/21 14:00) Received Contrast (Hold Metformin- Contr (04/09/21 14:00) Sodium Chloride Flush (Catheter Flush Sy (04/09/21 14:00) Ns (Ivpb) (Sodium Chloride 0.9% Ivpb Bag (04/09/21 14:00) Ceftriaxone (Rocephin) (04/09/21 13:54) Ns Iv 1000 Ml (Sodium Chloride 0.9%) (04/09/21 13:54) Morphine Injection (Morphine Injection (04/09/21 14:40) Morphine Injection (Morphine Injection (04/09/21 15:32) Lorazepam Injection (Ativan Injection) (04/09/21 15:32) Medications Given in ED Current Medications Medications Dose Ordered Sig/Hannah Route Start Time Stop Time Status Last Admin Dose Admin Iohexol 100 ml ONCE ONCE IV 04/09/21 14:00 04/09/21 14:01 DC 04/09/21 14:04 100 ML Sodium Chloride 10 ml NEEDED PRN IV 04/09/21 14:00 04/09/21 14:04 10 ML Sodium Chloride 100 ml ONCE ONCE IV 04/09/21 14:00 04/09/21 14:01 DC 04/09/21 14:04 100 ML Vital Signs/I&O 04/09/21 12:45 Temp 36.7 Pulse 107 Resp 18 B/P (MAP) 125/77 (93) Pulse Ox 100 O2 Delivery Room Air Capillary Refill : Less Than 3 Seconds Blood Pressure Mean: 93 Progress Note #1: Progress Note check labs, urine, CT scan of abdomen/pelvis to evaluate for kidney stone, diverticulitis, pyelonephritis. Give IVF for hydration, Toradol for body aches, Zofran for nausea. Check blood cultues and lactic acid with her tachycardia and complaint of pain in kidney area bilaterally. Progress Note #2: Progress Note CBC has elevated WBC at 16K with left shift. She has UA showing signs of infection with Nit, LE, too numerous to count WBC. Culture will be performed. Negative test. UDS positive for Amphetamines and Methamphetamines. She continues to complain of severe pain so Morphine given 4 mg IV to try and help with her kidney pain and body aches. Progress Note #3: Progress Note CT scan shows pyelonephritis Left kidney with possible abscess forming in the kidney. Right kidney without abnormality. No obstructive process seen involving ureters. Updated pt and she requested to go to [facility] as she states she has been treated there before. 1512 d/w VINCENZO Méndez, at the [facility] for possible transfer to [facility]. 1530 still complaining of pain so given Morphine 4 mg IV and Ativan 1 mg IV order to try and help with her pain and anxiety. 1543 [facility] called back and connected me to Dr. Weldon who accepted pt on behalf of Dr. Mendoza. 1550 pt signed out AMA as she states she wants to get her kids and make sure t hey are taken care of and she was unable to reach anyone to do that for her. She stated understanding that she would have to start over in the ED at [facility] but states she just wants IV out and will take care of her children and then plans to drive up to [facility] herself. She was advised that without continued antibiotics and treatment for this she could have severe sepsis and or lose her kidney or compromise the function of kidneys due to scarring from infection. She voiced understanding but still refused to be transferred to [facility] by ambulance from here and demanded to be able to leave. Diagnostic Imaging Diagonstic Imaging: CT Plain Films/CT/US/NM/MRI: abdomen, pelvis Comments [facility] [place], [place] NAME: ALANNA BURNS [facility] REC#: [id number] PT STATUS: REG ER : 1985 PHYSICIAN: LILLIE RESTREPO MD ADMIT DATE: 04/09/21/ER FS Signed Date of Exam:04/09/21 CT ABDOMEN/PELVIS W EXAMINATION: CT abdomen and pelvis with contrast from 04/09/2021. TECHNIQUE: Multiple contiguous axial images were obtained through the abdomen and pelvis after administration of intravenous contrast. Auto Exposure Controls were utilized during the CT exam to meet ALARA standards for radiation dose reduction. All CT scans use one or more of the following dose optimizing techniques: automated exposure control, MA and/or KvP adjustment based on patient size and exam type or iterative reconstruction. INDICATION: Dysuria, bilateral flank pain, generalized malaise x2 days. FINDINGS: There is diffuse fat stranding surrounding the left kidney with heterogeneous enhancement of the kidney, suspicious for pyelonephritis. Underlying hypodensities, too small for characterization, possibly cysts. A more focal prominent low-density area is seen towards the superior pole of the left kidney with early abscess formation not excluded. A definite measurable abscess is not seen at this time. There is mild left hydroureteronephrosis. No ureteral stones appreciated. The right kidney is unremarkable. The liver and spleen are normal. Pancreas and adrenal glands are unremarkable. Gallbladder is unremarkable. Appendix is normal. There is no significant free fluid in the pelvis. No free air. There is no acute osseous abnormality. Lung bases are unremarkable. IMPRESSION: 1. Findings suspicious for pyelonephritis of the left kidney with secondary mild left hydroureteronephrosis and no distal obstructive process seen. More focal hypodensities in the superior pole of the left kidney are noted. Very early abscess formation is not excluded but no measurable abscess is seen at this time. Other findings as above. Dictated by: Dictated on workstation # [id number] Dict: 04/09/21 1414 Trans: 04/09/21 1522 [id number] Interpreted by: ALANNA KEARNS MD Electronically signed by: ALANNA KEARNS MD 04/09/21 1522 Reviewed: Reviewed by Me Departure Impression Primary Impression: Pyelonephritis Additional Impressions: Bilateral flank pain Sepsis Qualified Codes: A41.9 - Sepsis, unspecified organism Renal abscess, left Methamphetamine abuse IV drug user Disposition: AGAINST MEDICAL ADVICE Condition: Against Medical Advice Departure-Patient Inst. Referrals: [facility] (PCP) Primary Care Physician MARCOS TALAVERA APRN (Family) Primary Care Physician LILLIE RESTREPO MD Apr 09, 2021 13:22
[2021-04-09 13:31] LABS: AMPHETAMINE SCREEN, URINE POSITIVE (NEGATIVE); BENZODIAZEPINES SCREEN URINE NEGATIVE (NEGATIVE); METHAMPHETAMINE SCREEN URINE S POSITIVE (NEGATIVE)
[2021-04-09 13:32] LABS: BARBITURATE SCREEN URINE NEGATIVE (NEGATIVE); CANNABINOID SCREEN, URINE NEGATIVE (NEGATIVE); COCAINE SCREEN URINE NEGATIVE (NEGATIVE); METHADONE STAT NEGATIVE (NEGATIVE); OPIATE SCREEN URINE NEGATIVE (NEGATIVE); OXYCODONE STAT NEGATIVE (NEGATIVE); PROPOXYPHENE STAT NEGATIVE (NEGATIVE); TRICYCLIC ANTIDEPRESSANTS SCRE NEGATIVE (NEGATIVE)
[2021-04-09 13:38] LABS: BASOPHILS % (AUTO) 0 % (0-10); EOSINOPHILS # (AUTO) 0.1 10^3/uL (0.0-0.3); EOSINOPHILS % (AUTO) 1 % (0-10); HEMATOCRIT 42 % (35-52); HEMOGLOBIN 14.1 g/dL (11.5-16.0); LYMPHOCYTES # (AUTO) 2.5 X 10^3 (1.0-4.0); LYMPHOCYTES % (AUTO) 15 % (12-44); MEAN CORPUSCULAR HEMOGLOBIN 30 pg (25-34); MEAN CORPUSCULAR HGB CONC 34 g/dL (32-36); MEAN CORPUSCULAR VOLUME 90 fL (80-99); MEAN PLATELET VOLUME 10.4 fL (9.0-12.2); MONOCYTES # (AUTO) 0.8 X 10^3 (0.0-1.0); MONOCYTES % (AUTO) 5 % (0-12); NEUTROPHILS # (AUTO) 12.4 X 10^3 (1.8-7.8); NEUTROPHILS % (AUTO) 78 % (42-75); PLATELET COUNT 264 10^3/uL (130-400)
[2021-04-09] MEDS ORDERED: cefTRIAXone 1,000 MG in WATER (STERILE) FOR INJECTION 10 ML IV STA (13:54)
[2021-04-09 13:59] LABS: ALBUMIN 4.4 GM/DL (3.2-4.5); BILIRUBIN,TOTAL 0.4 MG/DL (0.1-1.0); CALCIUM 9.6 MG/DL (8.5-10.1); CREATININE SERUM 0.7 MG/DL (0.60-1.30); POTASSIUM 3.3 MMOL/L (3.6-5.0); TOTAL PROTEIN 8.4 GM/DL (6.4-8.2)
[2021-04-09] MEDS ORDERED: NS 100 ML (IVPB) BAG IV ONE (14:00)
[2021-04-09] MEDS ORDERED: CATHETER FLUSH 10 ML SYR IV PRN (14:00)
[2021-04-09] MEDS ORDERED: HOLD METFORMIN - RECEIVED CONTRAST 20 ML VIAL IV SCH (14:00)
[2021-04-09] MEDS ORDERED: IOHEXOL 350 MG/ML 100 ML (OMNIPAQUE 350) VIAL IV ONE (14:00)
--- NOTE | 2021-04-09 14:32 | Diagnostic Imaging Report ---
EXAMINATION: CT abdomen and pelvis with contrast from 04/09/2021. TECHNIQUE: Multiple contiguous axial images were obtained through the abdomen and pelvis after administration of intravenous contrast. Auto Exposure Controls were utilized during the CT exam to meet ALARA standards for radiation dose reduction. All CT scans use one or more of the following dose optimizing techniques: automated exposure control, MA and/or KvP adjustment based on patient size and exam type or iterative reconstruction. INDICATION: Dysuria, bilateral flank pain, generalized malaise x2 days. FINDINGS: There is diffuse fat stranding surrounding the left kidney with heterogeneous enhancement of the kidney, suspicious for pyelonephritis. Underlying hypodensities, too small for characterization, possibly cysts. A more focal prominent low-density area is seen towards the superior pole of the left kidney with early abscess formation not excluded. A definite measurable abscess is not seen at this time. There is mild left hydroureteronephrosis. No ureteral stones appreciated. The right kidney is unremarkable. The liver and spleen are normal. Pancreas and adrenal glands are unremarkable. Gallbladder is unremarkable. Appendix is normal. There is no significant free fluid in the pelvis. No free air. There is no acute osseous abnormality. Lung bases are unremarkable. IMPRESSION: 1. Findings suspicious for pyelonephritis of the left kidney with secondary mild left hydroureteronephrosis and no distal obstructive process seen. More focal hypodensities in the superior pole of the left kidney are noted. Very early abscess formation is not excluded but no measurable abscess is seen at this time. Other findings as above. Dictated by: Dictated on workstation # [id number]
[2021-04-09] MEDS ORDERED: morphine INJ 10 MG/ML 1ML (SYR OR VIAL) IVP STA ×2 (14:40→15:32)
[2021-04-09 15:00] LABS: LYMPHOCYTES % (MANUAL) 9 %; MONOCYTES % (MANUAL) 4 %; NEUTROPHILS % (MANUAL) 87 %
[2021-04-09 15:01] LABS: POLYCHROMASIA SLIGHT; TOXIC GRANULATION/VACUOLAZATIO 4+
[2021-04-09] MEDS ORDERED: LORazepam INJ 2 MG/ML (ATIVAN) VIAL IVP STA (15:32)
== END 2021-04-09 15:55 | disposition left against medical advice (07) ==
LOC: EDUNIT# 12:30 → ER FS 12:32
DX: N12 Tubulo-interstitial nephritis, not specified as acute or chronic (principal); A41.9 Sepsis, unspecified organism; N15.1 Renal and perinephric abscess; F15.10 Other stimulant abuse, uncomplicated; F19.90 Other psychoactive substance use, unspecified, uncomplicated; E66.9 Obesity, unspecified; Z68.34 Body mass index [BMI] 34.0-34.9, adult
CPT/HCPCS: 36415; 74177; 80053; 80306; 81000; 83605; 84703; 85007; 85027; 86141; 87040; 87077; 87088; 87186

== ENCOUNTER 2022-05-31 12:13 | Emergency (ER) | payer MEDICAID ==
[~2022-05-31 12:13] MED LIST changes: +CYCL10TA25 PO; -CYCL10TA9 PO
[2022-05-31] MEDS ORDERED: KETOROLAC 30 MG/ML VIAL IVP STA (12:34)
[2022-05-31] MEDS ORDERED: NS IV 1000 ML 1,000 ML IV STA ×2 (12:34→13:52)
[2022-05-31] MEDS ORDERED: cefTRIAXone 1 GM PRE-MIX 50 ML IV STA (12:34)
--- NOTE | 2022-05-31 12:39 | ED General ---
General Stated Complaint: POSS ABSCESS ON RIGHT HIP/HEADACHE/COUGH Source of Information: Patient, Old Records History of Present Illness Date Seen by Provider: May 31, 2022 Time Seen by Provider: 12:17 Initial Comments 34-year-old female presenting with complaints of possible abscess on her right hip. She first noticed swelling and pain in this area yesterday. She states she applied Prid and did have a large amount of pus and blood draining from it. She continued to have redness and tenderness in the area. She has felt chilled subjective fever and chills. She is a smoker but has not been able to smoke in the last few days due to cough and shortness of breath. She has been having cough with shortness of breath and body aches since . She did have a negative COVID and flu test on Sunday. She has body aches and generally feels bad. She reports she had recent UTI and took antibiotic for that but notes she had sepsis with kidney infection last year and had to be admitted for it. Timing/Duration: Getting Worse (since ) Severity: Moderate Associated Systoms: No Chest Pain; Cough, Diaphoresis, Fever/Chills, Headaches, Loss of Appetite, Malaise; No Nausea/Vomiting, No Rash, No Seizure; Shortness of Air; No Syncope; Weakness Allergies and Home Medications Allergies Coded Allergies: meperidine (Verified Allergy, Unknown, Hives, 04/30/19) Patient Home Medication List Home Medication List Reviewed: Yes Amoxicillin/Potassium Clav (Amox Tr-K Clv 875-125 mg Tab) 875 Mg-125 Mg Tablet, 1 EACH PO BID Prescribed by: LILLIE RESTREPO on 05/31/22 1356 Cyclobenzaprine HCl (Cyclobenzaprine HCl) 10 Mg Tablet, 10 MG PO TID PRN for SPASMS Prescribed by: SUMI MURILLO MD on 07/13/19 1450 Hydrocodone Bit/Acetaminophen (HYDROcodone/APAP 5 MG/325 MG TAB) 1 Each Tablet, 1-2 EACH PO Q6H PRN for PAIN-MODERATE Prescribed by: SUMI MURILLO MD on 07/13/19 1455 Review of Systems Review of Systems Constitutional: chills, diaphoresis, fever, malaise, weakness EENTM: no symptoms reported Respiratory: see HPI Cardiovascular: no symptoms reported Gastrointestinal: no symptoms reported Genitourinary: decreased output Musculoskeletal: see HPI (generalized body aches) Skin: change in color (erythema and tenderness with mild swelling right lateral hip/buttock) Psychiatric/Neurological: Weakness (generalized) Hematologic/Lymphatic: No Symptoms Reported Past Uemmrmo-Hindrd-Kyzndi Hx Patient Social History Tobacco Use?: Yes Tobacco type used: Cigarettes Smoking Status: Current Everyday Smoker Substance use?: Yes Substance type: Methamphetamine (reports clean since December 2021) Seasonal Allergies Seasonal Allergies: No Past Medical History Surgery/Hospitalization HX: IV Drug Abuse Surgeries: Yes (Parotid Cyst removal from salivary gland) Cystectomy Respiratory: No Cardiac: No Neurological: No Genitourinary: No Gastrointestinal: No Musculoskeletal: No Endocrine: No HEENT: No Cancer: No Psychosocial: No Integumentary: No Blood Disorders: No Physical Exam Vital Signs Vital Signs - First Documented 05/31/22 12:19 Temp 37.8 Pulse 123 Resp 18 B/P (MAP) 138/70 (92) Pulse Ox 98 O2 Delivery Room Air Capillary Refill : Height, Weight, BMI Height: '" Weight: lbs. oz. kg; 34.00 BMI Method: General Appearance: Obese, Other (appears to not feel well) HEENT: PERRL/EOMI, Pharynx Normal Neck: Full Range of Motion, Normal Inspection, Non Tender, Supple Respiratory: Chest Non Tender, Lungs Clear, Normal Breath Sounds, No Accessory Muscle Use, No Respiratory Distress Cardiovascular: Normal Peripheral Pulses, Tachycardia Gastrointestinal: Normal Bowel Sounds, No Pulsatile Mass, Non Tender, Soft Rectal: Deferred Back: No CVA Tenderness Extremity: Normal Capillary Refill, Normal Inspection, No Pedal Edema Neurologic/Psychiatric: Alert, Oriented x3, stage rigger II-XII Norm as Tested Skin: Warm/Dry, Erythema (right lateral hip area), Other (no induration, fluctuance, drainage. tender to palpation over erythematous area on right hip with a central scab) Focused Exam Lactate Level 05/31/22 12:45: Lactic Acid Level 1.10 Lactic Acid Level Laboratory Tests Test 05/31/22 12:45 Lactic Acid Level 1.10 MMOL/L (0.50-2.00) Progress/Results/Core Measures Suspected Sepsis SIRS Temperature: Pulse: Respiratory Rate: Laboratory Tests 05/31/22 12:45: White Blood Count 16.0H Blood Pressure / Mean: 05/31/22 12:45: Lactic Acid Level 1.10 Laboratory Tests 05/31/22 12:45: Creatinine 0.63, Platelet Count 342, Total Bilirubin 0.4 Results/Orders Lab Results Laboratory Tests Test 05/31/22 12:45 05/31/22 12:55 Range/Units White Blood Count 16.0 H 4.3-11.0 10^3/uL Red Blood Count 4.38 3.80-5.11 10^6/uL Hemoglobin 12.9 11.5-16.0 g/dL Hematocrit 37 35-52 % Mean Corpuscular Volume 85 80-99 fL Mean Corpuscular Hemoglobin 30 25-34 pg Mean Corpuscular Hemoglobin Concent 35 32-36 g/dL Red Cell Distribution Width 12.1 10.0-14.5 % Platelet Count 342 130-400 10^3/uL Mean Platelet Volume 9.7 9.0-12.2 fL Immature Granulocyte % (Auto) 1 % Neutrophils (%) (Auto) 84 H 42-75 % Lymphocytes (%) (Auto) 10 L 12-44 % Monocytes (%) (Auto) 5 0-12 % Eosinophils (%) (Auto) 0 0-10 % Basophils (%) (Auto) 0 0-10 % Neutrophils # (Auto) 13.5 H 1.8-7.8 10^3/uL Lymphocytes # (Auto) 1.5 1.0-4.0 10^3/uL Monocytes # (Auto) 0.8 0.0-1.0 10^3/uL Eosinophils # (Auto) 0.1 0.0-0.3 10^3/uL Basophils # (Auto) 0.0 0.0-0.1 10^3/uL Immature Granulocyte # (Auto) 0.1 0.0-0.1 10^3/uL Neutrophils % (Manual) 86 % Lymphocytes % (Manual) 10 % Monocytes % (Manual) 2 % Eosinophils % (Manual) 0 % Basophils % (Manual) 1 % Band Neutrophils 1 % Sodium Level 134 L 135-145 MMOL/L Potassium Level 3.5 L 3.6-5.0 MMOL/L Chloride Level 97 L 98-107 MMOL/L Carbon Dioxide Level 28 21-32 MMOL/L Anion Gap 9 5-14 MMOL/L Blood Urea Nitrogen 14 7-18 MG/DL Creatinine 0.63 0.60-1.30 MG/DL Estimat Glomerular Filtration Rate 119 BUN/Creatinine Ratio 22 Glucose Level 101 70-105 MG/DL Lactic Acid Level 1.10 0.50-2.00 MMOL/L Calcium Level 9.2 8.5-10.1 MG/DL Corrected Calcium 9.3 8.5-10.1 MG/DL Total Bilirubin 0.4 0.1-1.0 MG/DL Aspartate Amino Transf (AST/SGOT) 11 5-34 U/L Alanine Aminotransferase (ALT/SGPT) 6 0-55 U/L Alkaline Phosphatase 82 40-136 U/L C-Reactive Protein 13.64 H <0.50 MG/DL Total Protein 8.0 6.4-8.2 GM/DL Albumin 3.9 3.2-4.5 GM/DL Serum Test, Qualitative NEGATIVE NEGATIVE Influenza Type A (RT-PCR) Not Detected Not Detecte Influenza Type B (RT-PCR) Not Detected Not Detecte SARS-CoV-2 RNA (RT-PCR) Not Detected Not Detecte Urine Color YELLOW Urine Clarity CLOUDY Urine pH 6.0 5-9 Urine Specific [place] 1.025 H 1.016-1.022 Urine Protein TRACE H NEGATIVE Urine Glucose (UA) NEGATIVE NEGATIVE Urine Ketones TRACE H NEGATIVE Urine Nitrite NEGATIVE NEGATIVE Urine Bilirubin NEGATIVE NEGATIVE Urine Urobilinogen 1.0 < = 1.0 MG/DL Urine Leukocyte Esterase NEGATIVE NEGATIVE Urine RBC (Auto) NEGATIVE NEGATIVE Urine RBC NONE /HPF Urine WBC 0-2 /HPF Urine Squamous Epithelial Cells 0-2 /HPF Urine Crystals NONE /LPF Urine Bacteria TRACE /HPF Urine Casts NONE /LPF Urine Mucus LARGE H /LPF Urine Culture Indicated NO Urine Opiates Screen NEGATIVE NEGATIVE Urine Oxycodone Screen NEGATIVE NEGATIVE Urine Methadone Screen NEGATIVE NEGATIVE Urine Propoxyphene Screen NEGATIVE NEGATIVE Urine Barbiturates Screen NEGATIVE NEGATIVE Ur Tricyclic Antidepressants Screen POSITIVE H NEGATIVE Urine Phencyclidine Screen NEGATIVE NEGATIVE Urine Amphetamines Screen POSITIVE H NEGATIVE Urine Methamphetamines Screen POSITIVE H NEGATIVE Urine Benzodiazepines Screen NEGATIVE NEGATIVE Urine Cocaine Screen NEGATIVE NEGATIVE Urine Cannabinoids Screen NEGATIVE NEGATIVE My Orders Orders - LILLIE RESTREPO MD Cbc With Automated Diff (05/31/22 12:34) Comprehensive Metabolic Panel (05/31/22 12:34) Blood Culture (05/31/22 12:34) Ua Culture If Indicated (05/31/22 12:34) Chest 1 View Ap/Pa Only (05/31/22 12:34) Ed Iv/Invasive Line Start (05/31/22 12:34) Crp Fs (05/31/22 12:34) Lactic Acid Analyzer (05/31/22 12:34) Ns Iv 1000 Ml (Sodium Chloride 0.9%) (05/31/22 12:34) Ketorolac Injection (Toradol Injection) (05/31/22 12:34) Ceftriaxone 1 Gm Pre-Mix (Rocephin 1 Gm (05/31/22 12:34) Drug Screen Stat (Urine) (05/31/22 12:34) Manual Differential (05/31/22 12:45) Covid 19 Inhouse Test (05/31/22 13:08) Influenza A And B By Pcr (05/31/22 13:08) Isolation Central Supply Req (05/31/22 13:08) Hcg,Qualitative Serum (05/31/22 13:08) Urine Bedside (05/31/22 13:35) Ns Iv 1000 Ml (Sodium Chloride 0.9%) (05/31/22 13:52) Acetaminophen Tablet (Tylenol Tablet) (05/31/22 14:07) Vital Signs/I&O 05/31/22 05/31/22 12:19 14:47 Temp 37.8 36.5 Pulse 123 105 Resp 18 18 B/P (MAP) 138/70 (92) 116/60 Pulse Ox 98 98 O2 Delivery Room Air Room Air Capillary Refill : Progress Note #1: Progress Note With having a source of infection as well as tachycardia will obtain blood work to check for signs of sepsis. Also get blood cultures along with urine and urine culture. Check basic labs to look for signs of infection, sepsis, liver failure, renal failure, electrolyte imbalance. Chest x-ray to look for pn eumonia since she has had cough for almost 2 weeks. Give normal saline 1 L IV fluid bolus for hydration, Toradol 30 mg IV for pain, Rocephin 1 g IV for cellulitis and abscess to the right hip. Administer antibiotics after blood cultures obtained. Will repeat the flu and COVID swab since she was having body aches and low-grade temperature. Progress Note #2: Time: 13:29 Progress Note CBC shows elevated white blood cell count to 16,000 with a left shift. Lactic acid is okay at 1.1. Chest x-ray shows atelectasis versus possible infiltrate in the lung bases. Urinalysis shows dehydration with elevated specific gravity 1.025. She is not showing leukocyte Estrace or nitrites consistent with a UTI. Progress Note #3: Progress Note COVID and influenza are both negative. Her CRP was elevated to over 13. Counseled patient that this likely was still due to dehydration and cellulitis. She could still have a viral illness contributing to her cough and shortness of breath. As she is not septic and is showing improvement with treatment we will repeat another liter of normal saline for additional hydration. Plan on discharging with Augmentin for broader coverage of cellulitis. If there is any bacterial infection with her lungs this would also treat for that. Progress Note #4: Progress Note After discharge of the patient her urine drug screen was noted to have methamphetamines and amphetamines with tricyclic's present. As patient does have a history of methamphetamine abuse this is likely due to drugs in her system. There could be a false positive however it would be unusual to trigger both methamphetamines and amphetamines. Continue with plan as above. Blood cultures are pending and if they do show any growth of bacteria she may need to be rechecked. She had already been counseled on follow-up and return precautions. Diagnostic Imaging Diagonstic Imaging: Xray Plain Films/CT/US/NM/MRI: chest Comments [facility], [facility]. [place], [place] NAME: ALANNA BURNS [facility] REC#: [id number] PT STATUS: REG ER : 1985 PHYSICIAN: LILLIE RESTREPO MD ADMIT DATE: 05/31/22/ER FS Signed Date of Exam:05/31/22 CHEST 1 VIEW AP/PA ONLY EXAMINATION: Chest, one view. HISTORY: Cough. Fever. Tachycardia. COMPARISON: 07/05/2020. FINDINGS: The lung volumes are normal. Small amount of left basilar opacities are seen. No large pleural effusion or pneumothorax is seen. The cardiomediastinal silhouette is normal in size and contour. No acute osseous abnormality is seen. IMPRESSION: 1. Small amount of left basilar opacities. These findings may represent atelectasis and/or infection. Dictated by: Dictated on workstation # [id number] Dict: 05/31/22 1307 Trans: 05/31/22 1315 [id number] Interpreted by: ASHLEIGH DANIEL DO Electronically signed by: ASHLEIGH DANIEL DO 05/31/22 1315 Reviewed: Reviewed by Me Departure Impression Primary Impression: Cellulitis of hip, right Additional Impressions: Dehydration Upper respiratory infection with cough and congestion Methamphetamine abuse Disposition: HOME, SELF-CARE Condition: Stable Departure-Patient Inst. Decision time for Depature: 13:56 Referrals: [facility] (PCP) Primary Care Physician MARCOS TALAVERA APRN (Family) Primary Care Physician Patient Instructions: Cough, Adult ED, Cellulitis (Skin Infection), Adult ED, Dehydration, Adult ED Add. Discharge Instructions: Take full course of antibiotics to treat for skin infection on right hip. If there is a bacterial infection in the lungs the antibiotics will help with that as well. Drink more water and stay well hydrated. Follow up with clinic for continued symptoms or if not improving. [facility] clinic can be reached by calling [phone] to arrange follow up. Continue with Mucinex medicine to help loosen cough and congestion. This works best if you are drinking a lot of extra water with it to make it work. Scripts Amoxicillin/Potassium Clav (Amox Tr-K Clv 875-125 mg Tab) 875 Mg-125 Mg Tablet 1 EACH PO BID for cellulitis for 10 Days, #20 TAB 0 Refills Prov: LILLIE RESTREPO MD 05/31/22 LILLIE RESTREPO MD May 31, 2022 12:39
[2022-05-31 13:01] LABS: BASOPHILS % (AUTO) 0 % (0-10); EOSINOPHILS # (AUTO) 0.1 10^3/uL (0.0-0.3); EOSINOPHILS % (AUTO) 0 % (0-10); HEMATOCRIT 37 % (35-52); HEMOGLOBIN 12.9 g/dL (11.5-16.0); LYMPHOCYTES # (AUTO) 1.5 10^3/uL (1.0-4.0); LYMPHOCYTES % (AUTO) 10 % (12-44); MEAN CORPUSCULAR HEMOGLOBIN 30 pg (25-34); MEAN CORPUSCULAR HGB CONC 35 g/dL (32-36); MEAN CORPUSCULAR VOLUME 85 fL (80-99); MEAN PLATELET VOLUME 9.7 fL (9.0-12.2); MONOCYTES # (AUTO) 0.8 10^3/uL (0.0-1.0); MONOCYTES % (AUTO) 5 % (0-12); NEUTROPHILS # (AUTO) 13.5 10^3/uL (1.8-7.8); NEUTROPHILS % (AUTO) 84 % (42-75); PLATELET COUNT 342 10^3/uL (130-400)
[2022-05-31 13:02] LABS: BILIRUBIN,URINE NEGATIVE (NEGATIVE); CLARITY,URINE CLOUDY; COLOR,URINE YELLOW; GLUCOSE, URINE (UA) NEGATIVE (NEGATIVE); KETONES,URINE TRACE (NEGATIVE); LEUKOCYTE ESTERASE ,URINE NEGATIVE (NEGATIVE); NITRITE,URINE NEGATIVE (NEGATIVE); PROTEIN,URINE TRACE (NEGATIVE)
[2022-05-31 13:08] LABS: BACTERIA,URINE TRACE /HPF; SQUAMOUS EPITHELIAL CELL,UR 0-2 /HPF; WBC,URINE 0-2 /HPF
--- NOTE | 2022-05-31 13:09 | Diagnostic Imaging Report ---
EXAMINATION: Chest, one view. HISTORY: Cough. Fever. Tachycardia. COMPARISON: 07/05/2020. FINDINGS: The lung volumes are normal. Small amount of left basilar opacities are seen. No large pleural effusion or pneumothorax is seen. The cardiomediastinal silhouette is normal in size and contour. No acute osseous abnormality is seen. IMPRESSION: 1. Small amount of left basilar opacities. These findings may represent atelectasis and/or infection. Dictated by: Dictated on workstation # [id number]
[2022-05-31 13:29] LABS: BILIRUBIN,TOTAL 0.4 MG/DL (0.1-1.0); CALCIUM 9.2 MG/DL (8.5-10.1); CREATININE SERUM 0.63 MG/DL (0.60-1.30); POTASSIUM 3.5 MMOL/L (3.6-5.0)
[2022-05-31 13:30] LABS: ALBUMIN 3.9 GM/DL (3.2-4.5)
[2022-05-31 13:37] LABS: BAND NEUTROPHILS 1 %; BASOPHILS % (MANUAL) 1 %; EOSINOPHILS % (MANUAL) 0 %; LYMPHOCYTES % (MANUAL) 10 %; MONOCYTES % (MANUAL) 2 %; NEUTROPHILS % (MANUAL) 86 %
[2022-05-31] MEDS ORDERED: AMOX1TAB12 PO (13:56)
[2022-05-31 14:01] LABS: AMPHETAMINE SCREEN, URINE POSITIVE (NEGATIVE); BENZODIAZEPINES SCREEN URINE NEGATIVE (NEGATIVE); TRICYCLIC ANTIDEPRESSANTS SCRE POSITIVE (NEGATIVE)
[2022-05-31 14:02] LABS: BARBITURATE SCREEN URINE NEGATIVE (NEGATIVE); CANNABINOID SCREEN, URINE NEGATIVE (NEGATIVE); COCAINE SCREEN URINE NEGATIVE (NEGATIVE); METHADONE STAT NEGATIVE (NEGATIVE); OPIATE SCREEN URINE NEGATIVE (NEGATIVE); OXYCODONE STAT NEGATIVE (NEGATIVE); PROPOXYPHENE STAT NEGATIVE (NEGATIVE)
[2022-05-31] MEDS ORDERED: ACETAMINOPHEN 500 MG TAB (TYLENOL) PO STA (14:07)
[2022-05-31 14:47] VITALS: BP 116/60
== END 2022-05-31 14:47 | disposition home or self-care (01) ==
LOC: EDUNIT# 12:13 → ER FS 12:17
DX: L03.115 Cellulitis of right lower limb (principal); J06.9 Acute upper respiratory infection, unspecified; E86.0 Dehydration; F15.10 Other stimulant abuse, uncomplicated; E66.9 Obesity, unspecified; F17.210 Nicotine dependence, cigarettes, uncomplicated; Z68.34 Body mass index [BMI] 34.0-34.9, adult; Z20.822 Contact with and (suspected) exposure to COVID-19; Z28.310 Unvaccinated for COVID-19
CPT/HCPCS: 36415; 71045; 80053; 80306; 81000; 83605; 84703; 85007; 85027; 86141; 87040; 87636